=== PATIENT | female | born 1965 | race Caucasian/White ===

== ENCOUNTER → 2020-11-21 | Day surgery (SDC) | payer OTHER ==
[~2020-11-21] MED LIST: ACETAMINOPHEN 1000 MG/100 ML 100 ML IV ONE; ASPIRIN81 MG PO; BUPIVACAINE LIPOSOME/PF 266 MG/20 ML IJ ONE; CALCIUM CHLORIDE 10% SYRINGE 0 ML IV ONE; CHLORDIAZEPO-A1 EACH PEG; CRESTOR10 MG PO; DEXAMETHASONE SOD PHOS INJ 4 MG/ML VIAL ONE; DICYCLOMINE HCL10 MG PO; ELIQUIS5 MG PO; ENTRESTO 24 MG1 EACH PO; FENTANYL CITRATE/PF 100MCG/2 ML INJ ONE; FOLIC ACID0.4 MG PO; FUROSEMIDE80 MG PO; ISORDIL40 MG PO; LIDOCAINE HCL 1% LOCAL INJ 20 ML VIAL ONE; METOPROLOL SUCC25 MG PO; PROTONIX20 MG PO; ROPINIROLE HCL1 MG PO; SODIUM CHLORIDE 0.9% 50ML 100 ML ONE; SPIRONOLACTONE25 MG PO; THROMBIN FOR SOLN 5,000 UNIT VIAL ONE; ULTRAM50 MG PO; WIXELA 250-501 EACH INH; ZETIA10 MG PO
[2020-11-21 16:00] VITALS: BP 120/79
== END | disposition home or self-care (01) ==
LOC: OR 10:49
PROVIDERS: ATTEND Podiatrist
DX: M72.2 Plantar fascial fibromatosis (principal); M77.32 Calcaneal spur, left foot; S91.102D Unspecified open wound of left great toe without damage to nail, subsequent encounter; S91.102A Unspecified open wound of left great toe without damage to nail, initial encounter; L03.032 Cellulitis of left toe; S91.105D Unspecified open wound of left lesser toe(s) without damage to nail, subsequent encounter; S91.105A Unspecified open wound of left lesser toe(s) without damage to nail, initial encounter; S90.112D Contusion of left great toe without damage to nail, subsequent encounter; S90.112A Contusion of left great toe without damage to nail, initial encounter; M77.31 Calcaneal spur, right foot; M76.72 Peroneal tendinitis, left leg; G90.09 Other idiopathic peripheral autonomic neuropathy; L60.2 Onychogryphosis; S91.201A Unspecified open wound of right great toe with damage to nail, initial encounter; M77.9 Enthesopathy, unspecified; M79.672 Pain in left foot; L60.0 Ingrowing nail; M20.5X9 Other deformities of toe(s) (acquired), unspecified foot; M20.10 Hallux valgus (acquired), unspecified foot; B35.1 Tinea unguium; Z01.812 Encounter for preprocedural laboratory examination; Z20.822 Contact with and (suspected) exposure to COVID-19; Z87.442 Personal history of urinary calculi; Z86.16 Personal history of COVID-19; I10 Essential (primary) hypertension; I48.91 Unspecified atrial fibrillation
CPT/HCPCS: 28119; J0131; J0690; J1100; J2001; J3010; U0002